=== PATIENT | female | born 2000 | race Caucasian/White ===

== ENCOUNTER 2021-07-19 09:38 | Emergency (ER) | payer OTHER ==
[~2021-07-19] VITALS: Ht 162.6 cm; Wt 63.5 kg
[2021-07-19 10:24] VITALS: BP 120/80
[2021-07-19 11:04] LABS: Urine Bacteria NONE SEEN /hpf (None Seen); Urine Blood Negative /uL (Negative); Urine Specific Gravity 1.008 (1.001-1.035); Urine WBC <1 /hpf (0 - 5)
[2021-07-19] MEDS ORDERED: IBUP800T27 PO (11:28)
[2021-07-19] MEDS ORDERED: AZIT500T66 PO (11:28)
== END 2021-07-19 11:40 | disposition home or self-care (01) ==
LOC: ER 09:38
DX: J03.90 Acute tonsillitis, unspecified (principal); R30.9 Painful micturition, unspecified; M54.50 Low back pain, unspecified; Z79.1 Long term (current) use of non-steroidal anti-inflammatories (NSAID); Z79.2 Long term (current) use of antibiotics; Z88.1 Allergy status to other antibiotic agents
CPT/HCPCS: 81001; 81025